=== PATIENT | female | born 1990 | race Caucasian/White ===

== ENCOUNTER 2021-03-04 19:28 | Emergency (ER) | payer OTHER ==
[~2021-03-04] VITALS: Ht 167.6 cm; Wt 79.4 kg
--- NOTE | ~2021-03-04 | EMS ---
[place] [address] EMS Patient Care Report Name: KENN LIZAMA Room #: DEP MERLE Daniels#: [id number] Admission: 03/04/21 Attend Phys: Discharge: 03/04/21 Date of : [birth year] Report #: [id number] THIS REPORT FOR: //name// Report Transmitted: 03/08/2021 14:41 EMS Care Summary [place], [place]/[facility] Incident [id number] @ 03/04/2021 18:52 Incident Location [address] [place] [address] Patient KENN LIZAMA Female, 31 Years 1990 Patient Address [address] [place] [address] [place] [address] Patient History None Reported, Patient Allergies Morphine, Patient Medications None Reported, Chief Complaint HEAT EXHAUSTION Disposition Transported No Lights/[place] Dispatch Reason Heat/Cold Exposure Transported To [facility] Narrative REC'D CALL FOR HEAT EXPOSURE. ON ARRIVAL FOUND PT LAYING ON COUCH IN LIVINGROOM OF HOUSE AT DISP'D ADDRESS, W/ P37 CREW IN ATTENDANCE. CREW STATED THAT PT HAD BEEN MOVING ALL DAY AND STARTED FEELING ILL A LITTLE WHILE EARLIER. PT IS A/O BUT VERY LETHARGIC, WITH SLURRED SPEACH. [place] [address] EMS Patient Care Report Name: KENN LIZAMA Room #: DEP KarineMoi#: [id number] Admission: 03/04/21 Attend Phys: Discharge: 03/04/21 Date of : [birth year] Report #: [id number] ER AT [facility]. PT WAS LOADED ONTO COT AND WHEELED OUT TO THE AMBO AND LOADED INSIDE. PT ASSESSMENT CONTINUED. IV ESTABLISHED ON 3RD ATTEMPT, IV BOLUS STARTED (LUNGS WERE CLEAR PRIOR TO BOLUS AND REMAINED CLEAR THRU TRANSPORT). PT COMPLAINED OF TROUBLE SEEING. PT LETHARGIC BEHAVIOR NEVER IMPROVED. PT MONITORRED CONTINUOUSLY DURING TRANSPORT, PT REMAINED STABLE. PT CARE PASSED TO [employer]ICER. Initial Vitals @19:02P: 95,BP: 140/67,SpO2: 84, @19:13P: 81,SpO2: 100, @19:02P: 28,Temp: 97.1F,SpO2: 82, @19:23P: 83,R: 22,Pain: 0/10,GCS: 15,SpO2: 100, @18:57P: 97,R: 28,BP: 138/83,Pain: 0/10,GCS: 15,Glucose: 111,SpO2: 100,Revised Trauma: 12,AK Suspected: false Assessments @18:59MENTAL:Other,Person Oriented,Event Oriented,Time Oriented,Place Oriented,SKIN:Diaphoresis,HEENT:Head/Face: No Abnormalities,Neck/Airway: No Abnormalities,LUNG SOUNDS:General: No Abnormalities,ABDOMEN:General: No Abnormalities,PELVIS//GI:No Abnormalities,EXTREMITIES:Capillary Refill: Left Upper: 4 Sec,Left Arm: No Abnormalities,Right Arm: No Abnormalities,Left Leg: No Abnormalities,Right Leg: No Abnormalities,PULSE:Radial: 1+ Thready,NEURO:Weakness Right-Sided,Weakness Left-Sided,Slurred Speech,@19:10MENTAL:No Abnormalities,SKIN:No Abnormalities,HEENT:Head/Face: No Abnormalities,Eyes: No Abnormalities,Neck/Airway: No Abnormalities,LUNG SOUNDS:General: No Abnormalities,ABDOMEN:General: No Abnormalities,PELVIS//GI:No Abnormalities,EXTREMITIES:Capillary Refill: Left Upper: 4 Sec,Left Arm: No Abnormalities,Right Arm: No Abnormalities,Left Leg: No Abnormalities,Right Leg: No Abnormalities,PULSE:Radial: 1+ Thready,NEURO:No Abnormalities, Impression Heat Exhaustion Procedures @19:03 cc (20 ga) Site: Hand-LeftResponse: UnchangedFailed@18:58ALS AssessmentResponse: UnchangedSucceeded@19:06Normal Saline (.9% NaCl) 350cc (22 ga) Site: Hand-RightResponse: UnchangedSucceeded@19:01StretcherResponse: Unchanged@19:023-Lead ECGResponse: UnchangedSucceeded@19:05 cc (20 ga) Site: Hand-LeftResponse: UnchangedFailed Timeline 18:50,Call Received 18:50,Dispatch Notified 18:52,Dispatched 18:52,En Route [address] [address] EMS Patient Care Report Name: KENN LIZAMA NERI Room #: [facility] MERLE Daniels#: [id number] Admission: 03/04/21 Attend Phys: Discharge: 03/04/21 Date of : [birth year] Report #: [id number] 18:56,On Scene 18:57,At Patient 18:57,BP: 138/83 M,PULSE: 97,RR: 28 R,SPO2: 100 Ox,ETCO2: ,B,PAIN: 0,GCS: 15, 18:58,ALS Assessment,Response: UnchangedSucceeded, 19:01,Stretcher,Response: Unchanged 19:02,BP: / M,PULSE: 28,RR: R,SPO2: 82 Ox,ETCO2: ,BG: ,PAIN: ,GCS: , 19:02,3-Lead ECG,Response: UnchangedSucceeded, 19:02,BP: 140/67 M,PULSE: 95,RR: R,SPO2: 84 Ox,ETCO2: ,BG: ,PAIN: ,GCS: , 19:03, cc 20 ga Site: Hand-Left,Response: UnchangedFailed, 19:05, cc 20 ga Site: Hand-Left,Response: UnchangedFailed, 19:06,Normal Saline (.9% NaCl) 350cc 22 ga Site: Hand-Right,Response: UnchangedSucceeded, 19:13,BP: / M,PULSE: 81,RR: R,SPO2: 100 Ox,ETCO2: ,BG: ,PAIN: ,GCS: , 19:15,Depart Scene 19:23,BP: / M,PULSE: 83,RR: 22 R,SPO2: 100 Ox,ETCO2: ,BG: ,PAIN: 0,GCS: 15, 19:24,At Destination 19:40,Call Closed Disclaimer v1.1 Copyright 2020 [employer] This EMS Care Summary contains data elements from the applicable legal record (which may be displayed differently). It is designed to provide pertinent information for the following purposes: continuity of care, clinical quality, and state data reporting. The complete legal record is available to ED staff and administrators of the receiving hospital in [employer] Patient Tracker. All data is provided "as is."
[~2021-03-04 19:28] MED LIST: AMOXICILLIN 50500 M1 PO; BENADRYL25 MG PO; IBUPROFEN 800800 M1 PO; LANOLIN56 GM; NORCO 10-325 T1 EACH PO; PRENATAL PO; TYLENOL EXTRA500 MG PO; VISTARIL50 MG PO
[2021-03-04] MEDS ORDERED: NOHOMEMEDICATIONS (19:50)
[2021-03-04 19:57] LABS: ABSOLUTE NEUTROPHILS 6.2 thou/uL (1.4-8.2); BASOPHILS 0.4 % (0.0-2.0); EOSINOPHILS 0.2 % (0.0-3.0); HEMATOCRIT 35.1 % (37.0-47.0); HEMOGLOBIN 11.5 gm/dL (12.0-15.0); LYMPHOCYTES 17.1 % (24.0-44.0); MCH 23.3 pg (26.0-34.0); MCHC 32.7 g/dL (28.0-37.0); MCV 71.1 fL (80.0-100.0); MONOCYTES 7.7 % (1.0-8.0); PLATELET COUNT 333 thou/uL (150-400); POLYS 74.6 % (36.0-66.0); RBC 4.93 mil/uL (4.20-5.00); RDW 15.6 % (10.5-14.5); WBC 8.3 thou/uL (4.0-11.0)
[2021-03-04 20:06] LABS: CALCIUM 9.2 mg/dL (8.5-10.1); POTASSIUM 3.6 mmol/L (3.5-5.1)
[2021-03-04 20:13] LABS: ALBUMIN 4.3 g/dL (3.4-5.0); MAGNESIUM 1.9 mg/dL (1.8-2.4); TOTAL BILIRUBIN 0.9 mg/dL (0.2-1.0); TOTAL PROTEIN 7.8 g/dL (6.4-8.2)
[2021-03-04 20:55] LABS: URINE BILIRUBIN NEGATIVE (Negative); URINE BLOOD NEGATIVE (Negative); URINE CLARITY CLEAR; URINE COLOR YELLOW; URINE GLUCOSE-RANDOM* NEGATIVE (Negative); URINE KETONES 2+ (Negative); URINE PROTEIN (DIPSTICK) 1+ (Negative); URINE UROBILINOGEN 0.2 E.U./dl (0.2-1.0)
[2021-03-04 20:57] LABS: URINE LEUKOCYTES-REFLEX 2+ (Negative); URINE NITRITE-REFLEX POSITIVE (Negative)
[2021-03-04 21:04] LABS: BACTERIA-REFLEX >30 Many /HPF (None Seen); CASTS None Seen /LPF (None Seen); SQUAMOUS 0-3 Few /LPF (0-3); URINE RBC None Seen /HPF (NONE SEEN); URINE WBC-REFLEX 6-15 Few /HPF (0-5)
[2021-03-04 21:05] LABS: CRYSTALS None Seen /LPF (None Seen)
[2021-03-04 22:18] VITALS: BP 129/72
[2021-03-04] MEDS ORDERED: CEPHALEXIN500 MG PO (22:18)
--- NOTE | 2021-03-06 11:02 | EKG ---
[place] [address] [facility] [address] ELECTROCARDIOGRAM REPORT Name: KENN LIZAMA [facility]: [facility] [id number] Admission: 03/04/21 Attend Phys: Discharge: 03/04/21 Date of : [birth year] Report #: [id number] [facility] ED Test Date: 2021-03-04 Test Time: 21:13:08 Pat Name: KENN LIZAMA Department: Room: Gender: F Second Vp Hr Assessment: khadar : 1990 Requested By: Tate Haile Order Number: [id number] MD: Demarco Goodman Measurements Intervals [place] Rate: 77 P: 47 [place]: 187 QRS: 31 QRSD: 96 T: 26 QT: 408 QTc: 462 Interpretive Statements Sinus rhythm RSR' in V1 or V2, right VCD No previous ECG available for comparison Electronically Signed On 03-06-2021 11:02:03 CDT by Demarco Goodman [email or web address] <ELECTRONICALLY SIGNED> By: Demarco Goodman MD 03/06/21 1102 2113 Demarco Goodman MD /EPI
== END 2021-03-04 22:28 | disposition home or self-care (01) ==
LOC: ER 19:28
PROVIDERS: Emergency Medicine
DX: E86.0 Dehydration (principal); N39.0 Urinary tract infection, site not specified; F17.210 Nicotine dependence, cigarettes, uncomplicated; Z98.890 Other specified postprocedural states; Z90.49 Acquired absence of other specified parts of digestive tract